=== PATIENT | female | born 1965 | race Caucasian/White ===

== ENCOUNTER → 2018-06-25 07:30 | Outpatient (CLI) | payer OTHER, SELFPAY ==
[2018-06-25 08:49] LABS: Alanine Aminotransferase 50 IU/L (9-52); Albumin 4.5 g/dL (3.5-5.0); Albumin Globulin Ratio 1.6 (1.0-2.8); Alkaline Phosphatase 62 U/L (38-126); Aspartate Aminotransferase 37 IU/L (14-36); Bilirubin Total 0.9 mg/dL (0.2-1.3); Blood Urea Nitrogen 18 mg/dL (7-17); Calcium 9.4 mg/dL (8.4-10.2); Carbon Dioxide 34 mmol/L (22-32); Chloride 99 mmol/L (98-107); Cholesterol 253 mg/dL (140-199); Estimated Glomerular Filt Rate > 60.0 mL/min (>60); Globulin 2.9 g/dL (1.7-4.1); Glucose 104 mg/dL (70-100); HDL Cholesterol 55 mg/dL (40-60); HEMOLYSIS < 15 (0-50); LDL Cholesterol Calculated 145 mg/dL (<100); Potassium 3.7 mmol/L (3.4-5.1); Sodium 143 mmol/L (137-145); Total Protein 7.4 g/dL (6.3-8.2); Triglycerides 265 mg/dL (35-150)
[2018-06-25 08:56] LABS: Hemoglobin A1C% w Est Avg Glu 5.6 % (4.0-6.0)
[2018-06-25 09:36] LABS: Thyroid Stimulating Hormone 2.27 uIU/mL (0.47-4.68)
== END ==
PROVIDERS: Family Provider Family Medicine; PCP Family Medicine; Visit Provider Psychiatry & Neurology Psychiatry
DX: Z79.899 Other long term (current) drug therapy (principal)
CPT/HCPCS: 36415; 80053; 80061; 83036; 84443

== ENCOUNTER → 2019-05-25 17:50 | Outpatient (CLI) | payer OTHER, SELFPAY ==
--- NOTE | 2019-05-25 | DI.MG.S_ITS ---
BILATERAL DIGITAL SCREENING MAMMOGRAM 3D/2D WITH CAD: 05/25/2019 CLINICAL: Routine screening. Family history of breast cancer. Comparison is made to exams dated: 12/23/2016 mammogram, 10/24/2014 mammogram, 04/18/2011 mammogram, and 10/19/2009 mammogram - [facility]. There are scattered fibroglandular elements in both breasts. Current study was also evaluated with a Computer Aided Detection (CAD) system. No significant masses, calcifications, or other findings are seen in either breast. There has been no significant interval change. IMPRESSION: NEGATIVE There is no mammographic evidence of malignancy. A 1 year screening mammogram is recommended. This exam was interpreted at Station ID: [id number]. NOTE: For mammograms, a report in lay terms will be sent to the patient. Approximately 15% of breast malignancies will not be visualized mammographically. In the management of a palpable breast mass, a negative mammogram must not discourage biopsy of a clinically suspicious lesion. Electronically Signed By: Albert lyn/arthur:05/26/2019 19:04:47 letter sent: Normal Exam ACR BI-RADS Category 1: Negative 3341F
== END ==
PROVIDERS: PCP Family Medicine; Visit Provider Family Medicine
DX: Z12.31 Encounter for screening mammogram for malignant neoplasm of breast (principal); Z80.3 Family history of malignant neoplasm of breast
CPT/HCPCS: 77063; 77067

== ENCOUNTER 2019-11-25 05:42 | Day surgery (SDC) | payer OTHER, SELFPAY ==
[2019-11-24 07:47] VITALS: BMI 34.0
[2019-11-25] VITALS (8 sets, daily range): BP systolic 125–135; BP diastolic 83–93; PULSE 71–77; RESP 11–16; TEMP 36.1–36.4; O2SAT 90–98; BMI 33.5
--- NOTE | 2019-11-25 | PATH_ITS ---
Note [facility] Accession Number: [id number] TESTS RESULT FLAG UNITS REF RANGE LAB Clinician Provided Cytology Information No. of containers..01 Other (Miscellaneous) 01 PELVIC WASHING DIAGNOSIS: 01 PELVIC WASHING NEGATIVE FOR MALIGNANT CELLS. BENIGN MESOTHELIAL CELLS. THIS INTERPRETATION INCLUDES EVALUATION OF A CELL BLOCK. Pathologist ICD10: 01 N83.209 Negin Carrizales MD, Pathologist NPI- [id number] Christiano Silva, Spinning Doffer ([facility]) 01 25 CC, RED, CLOUDY /LCS 11/26/2019 0133 Local FLAG LEGEND: L-Low Normal,H-High Normal,LL-Alert Low,HH-Alert High <-Panic Low,>-Panic High,A-Abnormal,AA-Critical Abnormal Performed at: 01 =Z [facility] [address], [place] [address] Rolly Lantigua MD, Specimen Comment: A duplicate report has been generated due to demographic updates. Performed at: 01 [facility] [address], [place], [place] [id number] MD Rolly Lantigua MD Phone: [phone]
[2019-11-25] MEDS: LACTATED RINGERS 1,000 ML 100 ML IV ×2 (07:22→09:36)
--- NOTE | 2019-11-25 07:25 | PM.PREOP ---
Pre-operative Note Interval Note History & Physical reviewed/Exam performed by Physician: Yes Changes to H&P: No
--- NOTE | 2019-11-25 08:32 | SUR.OPER ---
Lithotomy on padded OR bed, head on pillow, arms secured on padded arm boards at <90 degrees abduction. Legs secured in padded yellow fins stirrups.
[2019-11-25] MEDS: CLINDAMYCIN 900 MG/50 ML PIGGYBACK 50 MG IV (08:50)
[2019-11-25] MEDS: BUPIVACAINE 0.5% W/ EPI (PF) 10 ML VIAL INJ (08:59)
--- NOTE | 2019-11-25 09:42 | PM.OP.1 ---
Operative Date/Time/Diagnoses Date of procedure: 11/25/19 Time of procedure: 09:42 Pre-op diagnosis: Enlarging left ovarian cyst with internal septations Post-op diagnosis: same (Hemorrhagic ovarian cyst) Procedure & Clinicians Procedure: Laparoscopy with bilateral oophorectomies Same procedure as scheduled: Yes Indications: Patient with sudden onset of pain was found to have a ovarian cyst unclear if hemorrhagic or neoplastic. Patient was thought to be menopausal so last likely to be hemorrhagic cyst. The cyst was enlarging rather than decreasing in size so decision was made to proceed with laparoscopic removal. Surgeon: Marisela Jacobs Slunk Skinner: Kaley Gonzalez Click Yes if Unassisted: No Anesthesia Type: General Operative Notes Findings: Normal appearance to the abdomen except for large slightly adherent left ovarian cyst with normal right ovary, appendix, bowel surface, liver edge. Status post salpingectomy and hysterectomy. Closure Type: primary Specimen(s): other (Bilateral ovaries) Estimated Blood Loss (mL): 20 Blood products transfused: none Procedure in detail: Patient was brought to the operating room where she underwent general anesthesia. She was placed in low yellowfin stirrups and prepped and draped in usual sterile fashion. Initially antibiotics were not indicated. Pulsatile stockings were in place and functional. Warming was with blankets. The area of the incisions were injected with half percent Marcaine with epinephrine. An incision was made in the umbilicus with a scalpel through a prior laparoscopic incision site. The incision was taken down the fascia with blunt dissection. The fascia was incised transversely and held with 0 Vicryl suture. The perineum was entered bluntly and the Linda cannula was placed in the abdomen and the abdomen insufflated with CO2. 2 5 mm trochars were placed in the right and left lower quadrant under direct visualization after incising the skin. There did not appear to be any damage with placement of the trocars. Blunt dissection was performed removing the adhesions of the ovarian mass to the pelvic sidewall, the bladder, the descending colon. Cell washings were performed and sent. The left infundibulopelvic ligament was cauterized with the PK generator freeing the mass. Large Endo-Catch bag was put through the Linda cannula and the ovarian mass was placed in the bag without spillage. The bag was brought up to the umbilical incision. The mass was filled with dark red blood which was drained. The mass was removed totally without spillage. The the right ovary was grasped and the infundibulopelvic ligament was cauterized with the PK. This was placed in a 2nd Endo-Catch bag and removed intact. Adequate hemostasis was noted. The CO2 was allowed to escape from the abdomen. The trochars were removed. Skin was closed with 4-0 monocryl. The patient went to recovery room in good condition. Complications: none Post-operative Condition: stable Disposition: same day surgery Plan for aftercare: Home when awake and stable with routine post laparoscopy care.
--- NOTE | 2019-11-25 10:44 | SUR.PHASEII ---
Very pleasant, no questions remaining, declined to take kristy-pad, only scant pink on pad, abdominal sites CDI.
== END 2019-11-25 10:44 | disposition home or self-care (01) ==
PROVIDERS: PCP Family Medicine; Referring Provider Specialist; Visit Provider Specialist
PROC: (CPT 58661; principal; 2019-11-25 07:45)
DX: N83.202 Unspecified ovarian cyst, left side (principal); I10 Essential (primary) hypertension
CPT/HCPCS: 58661; J1100; J1885; J2250; J2405; J2704; J3010

== ENCOUNTER → 2020-06-16 14:54 | Outpatient (CLI) | payer OTHER, SELFPAY ==
--- NOTE | 2020-06-16 | DI.MRI.S_ITS ---
PROCEDURE: MR STROKE Pre- and post-contrast brain MRI, non-contrast brain MR angiogram, pre- and postcontrast neck MR angiogram INDICATIONS: FAMILY HISTORY OF HEART DISEASE VISUAL DISTURBANCE TECHNIQUE: Brain: Noncontrast axial T1 spin echo, axial T2 fast spin echo, sagittal and axial FLAIR, coronal T2 fast spin echo, axial gradient echo, axial diffusion and ADC through the brain. After the administration of contrast, axial 3D VIBE of the cranial vasculature and brain. Brain MRA: Non-contrast 3-D time of flight MR angiogram, with multiple wkbfdlo-kezyqumhe-rbqujufuwv (MIP) reformats performed. Neck MRA: Axial and sagittal TruFISP through the neck. Coronal dynamic MR angiogram during administration of contrast in the arterial and venous phases, with 3-dimenstional wziibml-zjglereov-ssvbvbaqlu (MIP) reformats constructed from subtraction images. COMPARISON: None. FINDINGS: Image quality: Excellent. BRAIN: CSF spaces: Ventricles are normal in size and shape. Basal cisterns are patent. No extra-axial fluid collections. Brain: No intracranial bleeds or mass effects. Scattered small white matter changes, probably represent chronic microvascular ischemic disease, versus statistically less likely demyelination or other infectious, inflammatory, neurodegenerative etiology, technically nonspecific. Krueger-white matter interface is normal. Diffusion weighted images show no acute ischemic insults. Brainstem appears normal. Normal intravascular flow voids are present. No abnormal intracranial enhancement. Skull and face: Calvarial marrow signal is normal. Orbits appear normal. Sinuses: Sinuses and mastoids are clear. BRAIN MR ANGIOGRAM: Anterior circulation: Intracranial internal carotid arteries are normal in size and enhancement. The flow within the paired anterior cerebral arteries is normal and symmetric. The flow within the middle cerebral arteries is normal and symmetric. The anterior communicating artery is seen. No stenoses, occlusions, or aneurysms. Posterior circulation: The visualized portions of the vertebral arteries demonstrate normal caliber, and join to form a normal appearing basilar artery. The flow within the posterior cerebral arteries is normal and symmetric. No stenoses, occlusions, or aneurysms. NECK MR ANGIOGRAM: Carotids: Great vessels demonstrate a conventional anatomy as they arise from the aortic arch. The origins of the common carotid arteries appear patent. The calibers and courses of both common carotid arteries are normal. The bifurcation regions appear normal bilaterally. The internal carotid arteries demonstrate normal course and caliber. Posterior circulation: The origins of the vertebral arteries appear patent. More superior portions of both vertebral arteries demonstrate normal course and caliber, and join to form a normal appearing basilar artery. Miscellaneous: Subclavian arteries appear patent. Pre-contrast images through the neck show no soft tissue abnormalities. IMPRESSION: BRAIN MRI: No evidence of acute ischemia. BRAIN MR ANGIOGRAM: No intracranial occlusion or focal stenosis identified. NECK MR ANGIOGRAM: No hemodynamically significant ICA stenosis seen. Dictated by: Sukhwinder Shrestha M.D. on 06/16/2020 at 16:57 Approved by: Sukhwinder Shrestha M.D. on 06/16/2020 at 17:04
--- NOTE | 2020-06-16 | DI.US.S_ITS ---
PROCEDURE: US ABD AORTA ANEURYSM SCREEN INDICATIONS: FAMILY HISTORY OF HEART DISEASE VISUAL DISTURBANCE TECHNIQUE: Real time scanning was performed of the aorta and iliac arteries, with image documentation. COMPARISON: None. FINDINGS: Aorta: Proximal aortic diameter measures 2.4 cm. Mid-aorta measures 1.6 cm. Distal aortic diameter is 1.5 cm. Iliac arteries: Right common iliac artery measures 0.8 cm. Left common iliac artery measures 0.9 cm. IMPRESSION: Negative for aneurysm. Dictated by: Aime Kc M.D. on 06/16/2020 at 15:45 Approved by: Aime Kc M.D. on 06/16/2020 at 15:46
== END ==
PROVIDERS: PCP Family Medicine; Referring Provider Family Medicine; Visit Provider Family Medicine
DX: Z13.6 Encounter for screening for cardiovascular disorders (principal); H53.9 Unspecified visual disturbance; Z82.49 Family history of ischemic heart disease and other diseases of the circulatory system
CPT/HCPCS: 70548; 70553; 76706; A9579

== ENCOUNTER → 2020-08-19 13:04 | Outpatient (CLI) | payer OTHER, SELFPAY ==
--- NOTE | 2020-08-19 13:05 | DI.MG.S_ITS ---
BILATERAL DIGITAL SCREENING MAMMOGRAM 3D/2D WITH CAD: 08/19/2020 CLINICAL: Routine screening. Family history of breast cancer. Comparison is made to exams dated: 05/25/2019 mammogram, 12/23/2016 mammogram, and 10/24/2014 mammogram - [facility]. There are scattered fibroglandular elements in both breasts. Current study was also evaluated with a Computer Aided Detection (CAD) system. No significant masses, calcifications, or other findings are seen in either breast. There has been no significant interval change. IMPRESSION: NEGATIVE There is no mammographic evidence of malignancy. A 1 year screening mammogram is recommended. This exam was interpreted at Station ID: [id number]. NOTE: For mammograms, a report in lay terms will be sent to the patient. Approximately 15% of breast malignancies will not be visualized mammographically. In the management of a palpable breast mass, a negative mammogram must not discourage biopsy of a clinically suspicious lesion. Electronically Signed By: Rogerio Dobbs acr/amenarad:08/20/2020 18:10:03 letter sent: Normal Exam ACR BI-RADS Category 1: Negative 3341F
== END ==
PROVIDERS: PCP Family Medicine; Referring Provider Family Medicine; Visit Provider Family Medicine
DX: Z12.31 Encounter for screening mammogram for malignant neoplasm of breast (principal); Z80.3 Family history of malignant neoplasm of breast
CPT/HCPCS: 77063; 77067

== ENCOUNTER → 2020-08-23 09:05 | Outpatient (CLI) | payer OTHER, SELFPAY ==
[2020-08-23 11:23] LABS: COVID19 -Nasal RAPID Negative (Negative)
== END ==
PROVIDERS: PCP Family Medicine; Visit Provider Surgery
DX: Z01.812 Encounter for preprocedural laboratory examination (principal); Z20.828 Contact with and (suspected) exposure to other viral communicable diseases
CPT/HCPCS: 87635; C9803

== ENCOUNTER 2020-08-24 10:21 | Day surgery (SDC) | payer OTHER, SELFPAY ==
[2020-08-24] VITALS (8 sets, daily range): BP systolic 114–133; BP diastolic 79–95; PULSE 58–83; RESP 12–16; TEMP 36.1–37.3; O2SAT 68–97; BMI 33.6
[2020-08-24] MEDS: LACTATED RINGERS 1,000 ML 200 ML IV (11:00)
--- NOTE | 2020-08-24 11:57 | PM.HP.1 ---
History of Present Illness History of Present Illness Date Patient Seen: 08/24/20 Time Patient Seen: 11:57 Chief complaint: SCREENING COLONSCOPY Narrative: The patient presents for colorectal sreening. He had previous colonoscopy 5 years ago that was significant for benign polyps.. No personal or family history of colon cancer. On further history denies any recent gastrointestinal symptoms. No nausea, vomiting, abdominal pain, loss of appetite, unexplained weight loss, change in bowel habits, diarrhea, constipation, melena, hematochezia, or bright red blood per rectum. Patient History Medical History Bipolar disorder Cystocele HTN (hypertension) Rectocele Surgical History History of colonoscopy Status post tubal ligation Status post vaginal hysterectomy (09/11/15) Family & Social History Social History: household members spouse Tobacco & Substance use: Smoking Status Never smoker alcohol intake current alcohol intake frequency a few times a week Substance Use Type does not use Meds Home Medications and Allergies Home Medications Medication Instructions Recorded Confirmed Type clonidine HCl 0.1 mg tablet 0.2 mg PO BEDTIME tab 11/19/19 08/24/20 History hydrochlorothiazide 25 mg tablet 25 mg PO DAILY 11/19/19 08/24/20 History lamotrigine 150 mg tablet 150 mg PO DAILY 11/19/19 08/24/20 History meloxicam 15 mg tablet 12.5 mg PO DAILY 11/19/19 08/24/20 History metoprolol succinate 25 mg 50 mg PO BID 11/19/19 08/24/20 History tablet,extended release 24 hr quetiapine [Seroquel] 50 mg PO DAILY 11/25/19 08/24/20 History aspirin [Aspir-81] 81 mg PO DAILY 08/24/20 History Allergies Allergy/AdvReac Type Severity Reaction Status Date / Time cephalexin [From KEFLEX] Allergy Unknown RASH Verified 11/25/19 06:53 scopolamine [SCOPOLAMINE] Allergy Unknown Hallucinati Verified 11/25/19 10:18 ng Review of Systems Review of Systems Narrative: A 10 point review of systems is negative except as noted in the HPI Exam Vital Signs (past 8 hours): - 08/24/20 10:42 Temperature 99.2 F Pulse Rate 83 Respiratory Rate 16 Blood Pressure 133/95 H Pulse Oximetry 97 Oxygen Delivery Method Room Air Narrative Exam Narrative: General-no acute distress, well nourished adult woman HEENT-moist mucous membranes, no scleral icterus Neck-supple, no lymphadenopathy Chest- non labored respirations, clear to auscultation bilaterally Cardiac-regular rate no peripheral edema Abdomen-soft, nontender, non distended Extremities-warm, well perfused Neurological-alert and oriented, no focal deficits Assessment & Plan Assessment & Plan narrative: The patient requires colorectal screening and colonoscopy is recommended. Technical details were discussed. Risks, benefits, alternatives explained. Risks including but not limited to myocardial infarction, aspiration, bleeding, pain, missed lesion, incomplete examination, need for further radiographic studies, colonic perforation, and need for major abdominal surgery were discussed. All questions were answered to their satisfaction, and they are in agreement with this plan.
[2020-08-24] MEDS: MIDAZOLAM 5 MG/5 ML VIAL IV (12:16)
[2020-08-24] MEDS: fentaNYL 250 MCG/5 ML INJ IV (12:16)
--- NOTE | 2020-08-24 12:28 | PM.OP.ENDO ---
Operative Date/Time/Diagnoses Date of procedure: 08/24/20 Time of procedure: 12:28 Pre-op diagnosis: history of colonic stricture Post-op diagnosis: same Procedure & Clinicians Study performed: colonoscopy Same procedure as scheduled: Yes Indications: 54-year-old female colonoscopy 5 years ago demonstrated benign polyps here for routine colonoscopy Surgeon: Pineda Motley Procedure Notes Procedure in detail: Medications: Conscious sedation using 7mg IV midazolam and 250mcg IV of fentanyl The history and physical was performed/updated and the patient is ASA class is 2. The procedure was discussed in detail with the patient. Potential risks complications including infection, bleeding, missed diagnosis, perforation, need for surgery, and were explained. Their questions were answered and informed consent was obtained. Patient was brought to the procedure room and placed standard monitoring equipment. The patient's vital signs were monitored continuously throughout the entire procedure. Prior to starting time-out was performed. The patient was placed in the left lateral recumbent position. Procedural sedation was administered. Examination began with a thorough inspection of the perianal area there was no evidence of fissures, fistulae, external hemorrhoids or cutaneous malignancy. The colonoscopy scope was then placed into the anal canal and was advanced to the cecum, which was identified by the ileocecal valve, the appendiceal orifice and the confluence of the taenia. The scope was then slowly withdrawn examining colon thoroughly in all directions, irrigating it of any residual stool. No masses or polyps Sigmoid diverticulosis The patient tolerated the procedure well. They will be discharged once criteria are met. The prep was of good/excellent quality. The withdrawl time was 7 minutes. The sedation time was 24 minutes. Specimen(s): none sent Complications: none Impression: Normal colonoscopy Post-procedure Recommendations: Colonscopy in 10 years Disposition: same day surgery
--- NOTE | 2020-08-24 14:15 | SUR.PREOP ---
Late entry: Stable phase 2, pt dressed when ready to go, belly soft, steady when up, left in stable condition.
== END 2020-08-24 13:30 | disposition home or self-care (01) ==
PROVIDERS: PCP Family Medicine; Referring Provider Family Medicine; Visit Provider Surgery
PROC: 0DJD8ZZ Inspection of Lower Intestinal Tract, Via Natural or Artificial Opening Endoscopic (ICD-10-PCS; CPT 45378; principal; 2020-08-24 11:30)
DX: Z12.11 Encounter for screening for malignant neoplasm of colon (principal); Z86.010 Personal history of colon polyps; I10 Essential (primary) hypertension; F31.9 Bipolar disorder, unspecified; K57.30 Diverticulosis of large intestine without perforation or abscess without bleeding
CPT/HCPCS: 45378; 99152; 99153; J2250; J3010

== ENCOUNTER → 2024-01-05 10:32 | Outpatient (CLI) | payer OTHER, SELFPAY ==
--- NOTE | 2024-01-05 | DI.RAD.S_ITS ---
PROCEDURE: XR LUMBAR SPINE 2-3V INDICATIONS: LBP TECHNIQUE: 3 views of the lumbar spine were acquired. COMPARISON: [facility], CT, CT KUB, 11/02/2019, 14:10. FINDINGS: Bones: 5 [id number]-[id number] vertebrae are present. Scoliosis centered at L4, appears increased compared to 2020. No vertebral body compression fractures. No suspicious bony lesions. Small vertebral body osteophytes. Soft tissues: Overlying bowel gas pattern is normal. No suspicious soft tissue calcifications. Arterial vascular calcifications. IMPRESSION: Mild scoliosis. Qztb-bj-keiqeewt degenerative changes. Dictated by: Albert Graves M.D. on 01/05/2024 at 12:30 Approved by: Albert Graves M.D. on 01/05/2024 at 12:34
--- NOTE | 2024-01-05 10:37 | DI.RAD.S_ITS ---
PROCEDURE: XR HIP W PEL IF DONE RT 2V INDICATIONS: RIGHT HIP PAIN TECHNIQUE: AP pelvis with lateral view(s) of the right hip(s). COMPARISON: [facility], CT, CT KUB, 11/02/2019, 14:10. FINDINGS: Bones: No fractures or dislocations. Mild degenerative changes at both hips. No a vascular necrosis of the right femoral head. Pelvic ring appears intact. No suspicious bony lesions. Soft tissues: The visualized bowel gas pattern is normal. No suspicious soft tissue calcifications. IMPRESSION: Mild bilateral hip DJD. Dictated by: Albert Graves M.D. on 01/05/2024 at 12:26 Approved by: Albert Graves M.D. on 01/05/2024 at 12:28
== END ==
PROVIDERS: PCP Family Medicine; Referring Provider Family Medicine; Visit Provider Family Medicine
DX: M16.0 Bilateral primary osteoarthritis of hip (principal); M47.816 Spondylosis without myelopathy or radiculopathy, lumbar region; M41.9 Scoliosis, unspecified; M25.551 Pain in right hip
CPT/HCPCS: 72100; 73502

== ENCOUNTER → 2024-03-03 09:53 | Outpatient (CLI) | payer OTHER, SELFPAY ==
--- NOTE | 2024-03-03 10:04 | DIAB.MNT ---
Initial Diabetes Medical Nutrition Therapy Assessment Name: Ann-Marie Gutierrez Date: 03/03/24 Time: 10- Dx: Type II Diabetes Provider: Kelly Do Learning Style: Listening, reading, watching, doing Ann-Marie presents for initial DM visit. Newly dx with T2DM with recent HgA1c of 7.1%. FH of DM with brother. Parents prior to age 58. Stopped drinking ETOH, except socially. Made nutrition changes since diagnosis. Feels better, less fatigue, clearer mind, more energy, lost 18# since changes. Resigned from stressful position at work as of March. Job has been high stress, long commute, and has impacted her lifestyle choices (more ETOH, less phys activity, more processed easy foods). Now will be working closer to home. Will be able to walk to and from work, maybe get a dog. Cut out pasta and rice. buying thin ww bread. Endorses h/o eating poorly. Lots of processed foods and refined sugar, saturated fats. Feels she grew up eating this way. Eye appt over 12 months. Up to date on dental. Diet Recall: 6a: coffee and milk or oat milk 630a: irish yogurt with berries or one slice ww thin bread with avocado and berries 11a: half chx sandwich with avocado and cheese, lettuce with nuts 2p: other half of sandwich 7p: tuna sandwihc with veggies OR veg and pro 3-4c black tea 3-4c water Anthropometrics: Ht: 64 Wt: 197# 12/2023 Physical Activity: Reports walking with friend's dog 20 min 1x per week. Self-Monitoring Blood Glucose: None currently. Some hesitancy with SMBG due to finger sticking. Discussed in detail and she is open to trying. States she knows someone with a CGM. May be interested in this. May be affordable via coupons. Wants to try a sample. Diabetes Medications: 500mg Metformin BID Pertinent Labs: HgA1c: (per referral) 5.6% 05/2022 7.1% 12/2023 Past Medical History: (Last Reviewed 08/24/20 @ 11:57 by Pineda Motley MD) Bipolar disorder Cystocele HTN (hypertension) Rectocele Nutrition Rx: Carbohydrates: Meal:30-45g Snack:15-30g Nutrition Diagnosis: - Intervention: This participant was very receptive. Provided appropriate educational handouts. Discussed the following topics: Completed intake assessment. Discussed barriers to care. Pathophysiology of T2DM HgA1c, its correlation to blood glucose numbers, and rationale for goal Importance of self-monitoring, how often, and when to check. Suggested checking at different times to evaluate meals Plate Method, impact of macronutrients on blood sugar, meal timing, carbohydrate counting, pairing macronutrients and spreading out carbohydrates for better blood glucose management Recommended servings for carbohydrates at meals and snacks Heart health nutrition Role of physical activity CGM: benefits, coupons available, brief overview of use Created SMART goals for patient self-care and success. Goals: Ask PCP for meter rx and bring next visit Make an eye appointment Continue diet changes Follow-up: DREW PEGUERO follow-up in [address] CGM sample next visit. Overall, the nutrition changes she has made are within recommendations. States she may need more ideas if getting bored of these ideas. Will reassess next visit. Shalonda Smith RDN, CDCES Certified Diabetes Care and Fuel Quality Tech P: [phone] Thank you for this referral
== END ==
PROVIDERS: PCP Family Medicine; Referring Provider Family Medicine
DX: E11.9 Type 2 diabetes mellitus without complications (principal); Z79.84 Long term (current) use of oral hypoglycemic drugs; Z71.3 Dietary counseling and surveillance
CPT/HCPCS: 97802

== ENCOUNTER → 2024-04-08 08:49 | Outpatient (CLI) | payer OTHER, SELFPAY ==
--- NOTE | 2024-04-08 09:05 | DIAB.MNTFU ---
Follow-up Diabetes Medical Nutrition Therapy Assessment Name: Ann-Marie Gutierrez Date: 04/08/24 Time: 9-10a Dx: Type II Diabetes Provider: Kelly Do Learning Style: Listening, reading, watching, doing Ann-Marie presents for follow-up DM visit. Reports two weeks of nutrition indiscretion with last two weeks at work being stressful. yogurt and apricot and coffee with oat milk at 730 and BG in clinic was 98mg/dl (2 hours pc) Meal/snack times will change with new job. Questions regarding best fruit to eat, how to incorporate more veggies, and wanting smoothie ideas. Anthropometrics: Ht: 64 Wt: 176# reported (wt loss from diet changes) 197# 12/2023 Physical Activity: Less recently but plans to increase with new job and walking to work. Self-Monitoring Blood Glucose: Brought meter and supplies. Did a return demo in clinic successfully with an in range 98 mg/dl after breakfast. Diabetes Medications: 500mg Metformin BID Pertinent Labs: HgA1c: (per referral) 5.6% 05/2022 7.1% 12/2023 Past Medical History: (Last Reviewed 08/24/20 @ 11:57 by Pineda Motley MD) Bipolar disorder Cystocele HTN (hypertension) Rectocele Nutrition Rx: Carbohydrates: Meal:30-45g Snack:15-30g Nutrition Diagnosis: - Food and nutrition related knowledge deficit r/t new dx T2DM aeb pt report and A1c >6.5% Intervention: This participant was very receptive. Provided appropriate educational handouts. Discussed the following topics: Nutrition overview Smoothie ideas with protein Glycemic load vs glycemic index Carb portions Pairing pro and CHO Strategies for adding more veggies SMBG demonstration and education Diabetes risk reduction: eye, dental, heart health, foot health Created SMART goals for patient self-care and success. Goals: Ask PCP for meter rx and bring next visit- met Make an eye appointment- in progress Continue diet changes - in progress Keep raw veggies on hand- new Try new air fryer- new Start bike rides- new Follow-up: DREW PEGUERO follow-up prn, PCP f/u Apr. Shalonda Smith, DREW, MARIELENA Certified Diabetes Care and Radiator Specialist P: [phone] Thank you for this referral
== END ==
PROVIDERS: PCP Family Medicine; Referring Provider Family Medicine
DX: E11.9 Type 2 diabetes mellitus without complications (principal); Z79.84 Long term (current) use of oral hypoglycemic drugs; Z71.3 Dietary counseling and surveillance
CPT/HCPCS: 97803